=== PATIENT | male | born 1950 | race Caucasian/White ===

== ENCOUNTER 2017-08-30 11:04 | Emergency (ER) | END 2017-08-30 17:20 | disposition home or self-care (01) ==

== ENCOUNTER 2017-09-08 14:05 | Inpatient (IN) | END 2017-10-20 12:48 | disposition home or self-care (01) | DRG 557 ==

== ENCOUNTER 2017-11-21 21:58 | Emergency (ER) | END 2017-11-22 00:41 | disposition home or self-care (01) ==

== ENCOUNTER 2017-11-27 18:11 | Emergency (ER) | END 2017-11-27 21:44 | disposition home or self-care (01) ==

== ENCOUNTER 2017-11-29 12:22 | Emergency (ER) | END 2017-11-29 15:40 | disposition home or self-care (01) ==

== ENCOUNTER 2018-01-23 10:47 | Emergency (ER) | END 2018-01-23 18:30 | disposition short-term general hospital (02) ==

== ENCOUNTER 2018-02-06 10:40 | Emergency (ER) | END 2018-02-06 18:40 | disposition short-term general hospital (02) ==